=== PATIENT | female | born 1985 | race American Indian/Alaskan Native ===

== ENCOUNTER 2016-07-12 12:38 | Emergency (ER) | payer MEDICAID ==
[2016-07-12 12:39] VITALS: BMI 38.5
[2016-07-12 12:53] VITALS: BP 113/61; PULSE 81; RESP 18; TEMP 98.1; O2SAT 100
--- NOTE | 2016-07-12 13:27 | ED PDOC ---
HPI: General Adult Time Seen by Provider: 07/12/16 12:54 Chief Complaint (Nursing): Dental Pain Chief Complaint (Provider): Dental Pain History Per: Patient History/Exam Limitations: no limitations Onset/Duration Of Symptoms: Days (x2 days) Have you had recent travel within the past 21 days to any of the following countries: [place], [place], [place] or [place]?: No Current Symptoms Are (Timing): Still Present Severity: Moderate Location: right lower tooth Quality: aching pain Recent Trauma: none Additional Complaint(s): Kat Pierre is a 31 year old female, with no pertinent past medical history , who presents to the emergency department for the evaluation of dental pain, that the patient has been experiencing for the past 2 days. Pain is centralized to her right lower tooth and is described as an aching pain that does not radiate elsewhere. Denies a fever or trauma. Of note, patient reports taking Tylenol; however, it provided no relief, prompting her visit to the emergency department. Patient also states that she has an upcoming appointment with her dentist on 07/25/2016. Further reports that she is not . PMD: none specified Past Medical History Reviewed: Historical Data, Nursing Documentation, Vital Signs Vital Signs: Last Vital Signs Temp 98.1 F 07/12/16 12:50 Pulse 81 07/12/16 12:50 Resp 18 07/12/16 12:50 BP 113/61 07/12/16 12:50 Pulse Ox 100 07/12/16 18:08 - Medical History PMH: No Chronic Diseases - Surgical History Surgical History: (x2) Other surgeries: Dilation and Curettage - Family History Family History: States: Unknown Family Hx - Social History Current smoker - smoking cessation education provided: Yes (<10 cigarettes daily ) Alcohol: None Drugs: Denies - Home Medications Home Medications: Ambulatory Orders Medication Instructions Recorded Vit#96/Ferrous Fum/FA 1 tab PO DAILY #100 tab 07/02/15 [] Cephalexin [Keflex] 500 mg PO Q8 #15 capsule 01/23/16 oxyCODONE/Acetaminophen [Percocet 2 ea PO Q4 PRN #20 tab 01/23/16 5/325 mg Tab] Penicillin VK [Pen-Vee K] 500 mg PO Q6 #40 tab 03/19/16 traMADol [Ultram] 50 mg PO Q8 #10 tab 03/19/16 Naproxen [Naprosyn] 500 mg PO BID PRN #30 tab 07/12/16 Penicillin VK [Pen-Vee K] 500 mg PO Q6 #40 tab 07/12/16 Tramadol HCl [Ultram] 50 mg PO BID PRN #14 tablet 07/12/16 - Allergies Allergies/Adverse Reactions: Allergies Allergy/AdvReac Type Severity Reaction Status Date / Time No Known Allergies Allergy Verified 02/15/15 09:45 Review of Systems ROS Statement: Except As Marked, All Systems Reviewed And Found Negative Constitutional: Negative for: Fever Musculoskeletal: Positive for: Other (dental pain, right lower tooth) Physical Exam - Reviewed Nursing Documentation Reviewed: Yes Vital Signs Reviewed: Yes - Physical Exam Appears: Positive for: Non-toxic, No Acute Distress ENT: Positive for: Normal ENT Inspection, Other (minimal gingival swelling w/ out fluctuance; tenderness to right mandibular molar tooth; poor dentition) Neurologic/Psych: Positive for: Alert, Oriented - ECG O2 Sat by Pulse Oximetry: 100 (RA) Pulse Ox Interpretation: Normal Medical Decision Making Medical Decision Makin:54 Initial Impression: Tooth ache Initial Plan: * Toradol 15 mg IM * Reevaluation Scribe Attestation: Documented by Houston Kohli, acting as a scribe for ROOPA Kohler. Provider Scribe Attestation: All medical record entries made by the Scribe were at my direction and personally dictated by me. I have reviewed the chart and agree that the record accurately reflects my personal performance of the history, physical exam, medical decision making, and the department course for this patient. I have also personally directed, reviewed, and agree with the discharge instructions and disposition. Disposition - Clinical Impression Clinical Impression: Toothache - Patient ED Disposition Is Patient to be Admitted: No - Disposition Disposition: Routine/Home Disposition Time: :20 Condition: STABLE Additional Instructions: Follow up with your dentist as previously scheduled. Prescriptions: Naproxen [Naprosyn] 500 mg PO BID PRN #30 tab PRN Reason: Pain Penicillin VK [Pen-Vee K] 500 mg PO Q6 #40 tab Tramadol HCl [Ultram] 50 mg PO BID PRN #14 tablet PRN Reason: Other Instructions: Toothache (ED)
== END 2016-07-12 14:44 | disposition home or self-care (01) ==
LOC: H.ER 12:38
DX: K08.89 Other specified disorders of teeth and supporting structures (principal)

== ENCOUNTER 2016-11-06 11:35 | Emergency (ER) | payer MEDICAID ==
[2016-11-06 11:46] VITALS: TEMP 97; O2SAT 99; BMI 38.3
[2016-11-06 12:16] VITALS: RESP 16
--- NOTE | 2016-11-06 12:37 | ED PDOC ---
Upper Extremity Pain/Injury Time Seen by Provider: 11/06/16 12:26 Chief Complaint (Nursing): Finger,Hand,&Wrist Chief Complaint (Provider): Left Finger Injury History Per: Patient History/Exam Limitations: no limitations Onset/Duration Of Symptoms: Days (x1) Current Symptoms Are (Timing): Still Present Additional Complaint(s): Kat Pierre is a 31 year old right-hand dominant female that presents to the ED with a chief complaint of a left index finger injury that she sustained yesterday after a fall. Patient denies any head injury or LOC as a result of fall yesterday and she denies any other injuries as a result of fall. Patient states that she took Tylenol but this has not helped. She states swelling is worse today. Patient unable to bend affected digit, she denies any associated numbness or tingling to affected area. Past Medical History Reviewed: Historical Data, Nursing Documentation, Vital Signs Vital Signs: Last Vital Signs Temp 97 F L 11/06/16 12:13 Pulse 70 11/06/16 12:13 Resp 16 11/06/16 12:13 BP 127/103 H 11/06/16 12:13 Pulse Ox 99 11/06/16 12:13 - Medical History PMH: No Chronic Diseases - Surgical History Surgical History: (x2) - Family History Family History: States: No Known Family Hx - Living Arrangements Living Arrangements: With Family - Social History Current smoker - smoking cessation education provided: Yes Alcohol: None Drugs: Denies - Home Medications Home Medications: Ambulatory Orders Medication Instructions Recorded Vit#96/Ferrous Fum/FA 1 tab PO DAILY #100 tab 07/02/15 [] Cephalexin [Keflex] 500 mg PO Q8 #15 capsule 01/23/16 oxyCODONE/Acetaminophen [Percocet 2 ea PO Q4 PRN #20 tab 01/23/16 5/325 mg Tab] Penicillin VK [Pen-Vee K] 500 mg PO Q6 #40 tab 03/19/16 traMADol [Ultram] 50 mg PO Q8 #10 tab 03/19/16 Naproxen [Naprosyn] 500 mg PO BID PRN #30 tab 07/12/16 Penicillin VK [Pen-Vee K] 500 mg PO Q6 #40 tab 07/12/16 Tramadol HCl [Ultram] 50 mg PO BID PRN #14 tablet 07/12/16 Ibuprofen [Motrin Tab] 800 mg PO Q8 PRN #20 tab 11/06/16 - Allergies Allergies/Adverse Reactions: Allergies Allergy/AdvReac Type Severity Reaction Status Date / Time No Known Allergies Allergy Verified 02/15/15 09:45 Review of Systems ROS Statement: Except As Marked, All Systems Reviewed And Found Negative Musculoskeletal: Positive for: Hand Pain (left index finger injury) Physical Exam - Reviewed Nursing Documentation Reviewed: Yes Vital Signs Reviewed: Yes - Physical Exam Appears: Positive for: Non-toxic, No Acute Distress Skin: Positive for: Normal Color, Warm. Negative for: Rash Pulses-Radial (L): 2+ Pulses-Radial (R): 2+ Extremity: Positive for: Tenderness (TTP left index finger), Swelling (swelling of left index finger). Negative for: Normal ROM (decreased ROM left index finger) Neurologic/Psych: Positive for: Alert, Oriented. Negative for: Motor/Sensory Deficits (full distal sensation in left index finger) - Laboratory Results Urine POC: Negative - ECG O2 Sat by Pulse Oximetry: 99 (RA) Pulse Ox Interpretation: Normal - Other Rad Left hand x-ray X-Ray: Interpreted by Me, Viewed By Me X-Ray Interpretation: see below Medical Decision Making Medical Decision Making: Impression: Left Index Finger Injury Plan: * X-Ray Left Hand * Ibuprofen 600 mg PO * Urine * Reevaluation X-ray: nondisplaced fracture middle phanlanx of index finger best seen on lateral view Splint applied to affected digit. Patient was referred to hand transcription coordinator and clinic. [employer] contact information also provided. Rx motrin. Scribe Attestation: Documented by Keerthi Mendiola, acting as a scribe for Harleen Lee PA-C. Provider Scribe Attestation: All medical record entries made by the Scribe were at my direction and personally dictated by me. I have reviewed the chart and agree that the record accurately reflects my personal performance of the history, physical exam, medical decision making, and the department course for this patient. I have also personally directed, reviewed, and agree with the discharge instructions and disposition. Procedures - Splinting Location: Left index finger Pre-Made Type: metal (metallic volar splint applied, secured with tape) Pre-Proc Neuro Vasc Exam: normal Post-Proc Neuro Vasc Exam: normal Disposition - Clinical Impression Clinical Impression: Finger fracture, left - Patient ED Disposition Is Patient to be Admitted: No Counseled Patient/Family Regarding: Studies Performed, Diagnosis, Need For Followup, Rx Given - Disposition Referrals: [facility] [Outside] Aleksandr Lux MD [Medical Doctor] - Disposition: Routine/Home Disposition Time: 13:04 Condition: STABLE Additional Instructions: Ice, rest and elevate affected area. Keep splint on at all times. Take rx meds as directed as needed for pain. Follow up with clinic or with hand specialist in 2-3 days. Prescriptions: Ibuprofen [Motrin Tab] 800 mg PO Q8 PRN #20 tab PRN Reason: Pain, Moderate (4-7) Instructions: Finger Fracture (ED) Forms: [employer] ([place])
[2016-11-06 14:19] VITALS: BP 164/90; PULSE 80
--- NOTE | 2016-11-06 14:25 | RAD ---
PROCEDURE: Left Hand Radiographs. HISTORY: trauma, attn index finger COMPARISON: None. FINDINGS: BONES: 2nd middle phalanx fracture. JOINTS: Normal. No osteoarthritic changes. SOFT TISSUES: Normal. OTHER FINDINGS: None. IMPRESSION: 2nd middle phalanx fracture.
== END 2016-11-06 14:38 | disposition home or self-care (01) ==
LOC: H.ER 11:35
DX: S62.601A Fracture of unspecified phalanx of left index finger, initial encounter for closed fracture (principal); W19.XXXA Unspecified fall, initial encounter

== ENCOUNTER 2017-02-18 08:12 | Emergency (ER) | payer MEDICAID ==
[2017-02-18 08:12] VITALS: BMI 38.3
[2017-02-18 08:21] VITALS: TEMP 97
[2017-02-18] MEDS ORDERED: Sodium Chloride 0.9% 1,000 ML IV STA (08:34)
--- NOTE | 2017-02-18 08:39 | ED PDOC ---
HPI:Nausea, Vomiting, Diarrhea Time Seen by Provider: 02/18/17 08:23 Chief Complaint (Nursing): GI Problem Chief Complaint (Provider): Nausea History Per: Patient History/Exam Limitations: no limitations Onset/Duration Of Symptoms: Days (4) Current Symptoms Are (Timing): Still Present Additional Complaint(s): Pt. with 4 days of nausea, vomit nonbloody, weakness all over. Also facial pain and back of head pain. Same as her migraines. Not worst in her life. States she has had bad headaches in the past and this is not that bad. No neck pain. No diarrhea. Has no abd pain, chest pain, dyspnea. Feels light-headed, weakness all over. No fever. No new food or drinks. No head injury. No back pain. No dysuria. No numbness, tingles. Has body aches. Did not take any medicines for it. Past Medical History Reviewed: Nursing Documentation, Vital Signs Vital Signs: Last Vital Signs Temp 97.0 F L 02/18/17 08:20 Pulse 63 02/18/17 08:20 Resp 20 02/18/17 08:20 BP 106/62 02/18/17 08:20 Pulse Ox 100 02/18/17 08:20 - Medical History Other PMH: migraine - Surgical History Surgical History: (x2) - Family History Family History: States: Unknown Family Hx - Living Arrangements Living Arrangements: With Family - Social History Current smoker - smoking cessation education provided: No Alcohol: None Drugs: Denies - Home Medications Home Medications: Ambulatory Orders Medication Instructions Recorded Vit#96/Ferrous Fum/FA 1 tab PO DAILY #100 tab 07/02/15 [] Cephalexin [Keflex] 500 mg PO Q8 #15 capsule 01/23/16 oxyCODONE/Acetaminophen [Percocet 2 ea PO Q4 PRN #20 tab 01/23/16 5/325 mg Tab] Penicillin VK [Pen-Vee K] 500 mg PO Q6 #40 tab 03/19/16 traMADol [Ultram] 50 mg PO Q8 #10 tab 03/19/16 Naproxen [Naprosyn] 500 mg PO BID PRN #30 tab 07/12/16 Penicillin VK [Pen-Vee K] 500 mg PO Q6 #40 tab 07/12/16 Tramadol HCl [Ultram] 50 mg PO BID PRN #14 tablet 07/12/16 Ibuprofen [Motrin Tab] 800 mg PO Q8 PRN #20 tab 11/06/16 Ibuprofen [Motrin] 600 mg PO TID 7 Days tab 02/18/17 Ondansetron [Zofran] 4 mg PO Q8H PRN #6 tab 02/18/17 - Allergies Allergies/Adverse Reactions: Allergies Allergy/AdvReac Type Severity Reaction Status Date / Time No Known Allergies Allergy Verified 02/18/17 08:25 Review of Systems ROS Statement: Except As Marked, All Systems Reviewed And Found Negative Constitutional: Positive for: Weakness ENT: Positive for: Other (face pain) Gastrointestinal: Positive for: Nausea, Vomiting. Negative for: Abdominal Pain Musculoskeletal: Positive for: Other (body aches). Negative for: Neck Pain Neurological: Positive for: Weakness, Headache, Dizziness. Negative for: Numbness, Incoordination, Change in Speech, Confusion, Altered Mental Status Physical Exam - Reviewed Nursing Documentation Reviewed: Yes Vital Signs Reviewed: Yes - Physical Exam Appears: Positive for: Non-toxic, No Acute Distress Head Exam: Positive for: ATRAUMATIC, NORMAL INSPECTION, NORMOCEPHALIC Skin: Positive for: Normal Color, Warm, DRY Eye Exam: Positive for: EOMI, Normal appearance, PERRL ENT: Positive for: Normal ENT Inspection. Negative for: Nasal Congestion, Pharyngeal Erythema Neck: Positive for: Normal, Painless ROM, Supple Cardiovascular/Chest: Positive for: Regular Rate, Rhythm. Negative for: Edema Respiratory: Positive for: CNT, Normal Breath Sounds Gastrointestinal/Abdominal: Positive for: Normal Exam, Bowel Sounds, Soft Pelvic Exam: Negative for: External Exam Normal Back: Positive for: Normal Inspection. Negative for: L CVA Tenderness, R CVA Tenderness Extremity: Positive for: Normal ROM. Negative for: Tenderness, Pedal Edema Neurologic/Psych: Positive for: Alert, sql database programmer II-XII, Oriented. Negative for: Motor/Sensory Deficits, Aphasia, Facial Droop - Laboratory Results Result Diagrams: 02/18/17 09:27 02/18/17 09:27 Interpretation Of Abn Labs: no acute Urine POC: Negative Urine dip results: Negative for: Leukocyte Esterase, Nitrate - ECG O2 Sat by Pulse Oximetry: 100 Pulse Ox Interpretation: Normal - Progress ED Course And Treament: 1140: Stable. AAOx3. Pain free. Tolerated PO. Disposition - Clinical Impression Clinical Impression: Weakness, Headache - Patient ED Disposition Is Patient to be Admitted: No Counseled Patient/Family Regarding: Studies Performed, Diagnosis, Need For Followup, Rx Given - Disposition Referrals: [facility] [Outside] - 02/19/17 Disposition: Routine/Home Disposition Time: 11:00 Condition: STABLE Additional Instructions: Return if not better in 3 days. Prescriptions: Ibuprofen [Motrin] 600 mg PO TID 7 Days tab Ondansetron [Zofran] 4 mg PO Q8H PRN #6 tab PRN Reason: Nausea/Vomiting Instructions: Weakness (ED), Acute Headache (ED) Forms: [employer] (Kiswahili)
[2017-02-18 09:32] LABS: BASO # 0.1 K/uL (0.0-0.2); EOS # 0.2 K/uL (0.0-0.7); EOS % 2.6 % (0.0-4.0); HEMATOCRIT 31.5 % (34.0-47.0); LYMPH # 1.9 K/uL (1.0-4.3); LYMPH % 27.2 % (20.0-40.0); MEAN CELL VOLUME 67.4 fl (81.0-99.0); MEAN CORPUSCULAR HEMOGLOBIN 20.3 pg (27.0-31.0); MEAN CORPUSCULAR HGB CONC 30.1 g/dL (33.0-37.0); MEAN PLATELET VOLUME 9.2 fl (7.2-11.7); MONO # 0.6 K/uL (0.0-0.8); MONO % 8.7 % (0.0-10.0); NEUT # 4.2 K/uL (1.8-7.0); NEUT % 60.5 % (50.0-75.0); NRBC % 0.1 % (0.0-0.0); RED CELL DISTRIBUTION WIDTH 19.9 % (11.5-14.5); WHITE BLOOD COUNT 6.9 K/uL (4.8-10.8)
[2017-02-18 09:48] LABS: ALKALINE PHOSPHATASE 61 U/L (38-126); ALT/SGPT 29 U/L (9-52); AST/SGOT 27 U/L (14-36); BILIRUBIN,TOTAL 0.2 mg/dl (0.2-1.3); BLOOD UREA NITROGEN 10 mg/dl (7-17); CALCIUM 8.2 mg/dL (8.4-10.2); CARBON DIOXIDE 22 mmol/L (22-30); CHLORIDE 112 mmol/L (98-107); GFR AFRICAN-AMERICAN > 60; GLUCOSE,RANDOM 103 mg/dL (65-105); LIPASE 40 U/L (23-300); POTASSIUM 3.7 MMOL/L (3.6-5.0); SODIUM 143 mmol/l (132-148); TOTAL PROTEIN 7.5 G/DL (6.3-8.2)
[2017-02-18 13:37] VITALS: BP 142/78; PULSE 88; RESP 18; O2SAT 98
== END 2017-02-18 11:30 | disposition home or self-care (01) ==
LOC: H.ER 08:12
DX: M62.81 Muscle weakness (generalized) (principal); R51 Headache
CPT/HCPCS: 80053; 81025; 83690; 85025; 96374; 99283; J2765; J7040

== ENCOUNTER 2017-04-08 00:41 | Emergency (ER) | payer MEDICAID ==
[2017-04-08 00:42] VITALS: BMI 38.3
[2017-04-08 01:26] VITALS: BP 108/54; PULSE 67; RESP 16; TEMP 98.9; O2SAT 100
--- NOTE | 2017-04-08 02:07 | ED PDOC ---
HPI: Dental Pain/Injury Time Seen by Provider: 04/08/17 01:29 Chief Complaint (Nursing): Dental Pain Chief Complaint (Provider): toothache History Per: Patient History/Exam Limitations: no limitations Onset/Duration Of Symptoms: Days (1) Current Symptoms Are (Timing): Still Present Dental: 1 - pain Additional History Per: Patient Additional Complaint(s): 32 y/o female presents with left upper toothache x 1 day. Associated left facial swelling, bleeding from tooth. Denies fever, nausea/vomiting, difficulty speaking/swallowing, throat pain. No medication taken for relief thus far. Past Medical History Reviewed: Historical Data, Nursing Documentation, Vital Signs Vital Signs: Last Vital Signs Temp 98.9 F 04/08/17 01:23 Pulse 67 04/08/17 01:23 Resp 16 04/08/17 01:23 BP 108/54 L 04/08/17 01:23 Pulse Ox 100 04/08/17 01:23 - Medical History PMH: No Chronic Diseases - Surgical History Surgical History: (x2) - Family History Family History: States: Unknown Family Hx - Home Medications Home Medications: Ambulatory Orders Medication Instructions Recorded Vit#96/Ferrous Fum/FA 1 tab PO DAILY #100 tab 07/02/15 [] Cephalexin [Keflex] 500 mg PO Q8 #15 capsule 01/23/16 oxyCODONE/Acetaminophen [Percocet 2 ea PO Q4 PRN #20 tab 01/23/16 5/325 mg Tab] Penicillin VK [Pen-Vee K] 500 mg PO Q6 #40 tab 03/19/16 traMADol [Ultram] 50 mg PO Q8 #10 tab 03/19/16 Naproxen [Naprosyn] 500 mg PO BID PRN #30 tab 07/12/16 Penicillin VK [Pen-Vee K] 500 mg PO Q6 #40 tab 07/12/16 Tramadol HCl [Ultram] 50 mg PO BID PRN #14 tablet 07/12/16 Ibuprofen [Motrin Tab] 800 mg PO Q8 PRN #20 tab 11/06/16 Ibuprofen [Motrin] 600 mg PO TID 7 Days tab 02/18/17 Ondansetron [Zofran] 4 mg PO Q8H PRN #6 tab 02/18/17 Amoxicillin 500 mg PO TID #20 tablet 04/08/17 Naproxen [Naprosyn] 500 mg PO Q12 PRN #20 tablet 04/08/17 traMADol [Ultram] 50 mg PO Q8 PRN #10 tab 04/08/17 - Allergies Allergies/Adverse Reactions: Allergies Allergy/AdvReac Type Severity Reaction Status Date / Time No Known Allergies Allergy Verified 04/08/17 01:23 Review of Systems ROS Statement: Except As Marked, All Systems Reviewed And Found Negative ENT: Positive for: Mouth Pain (left upper toothache) Physical Exam - Reviewed Nursing Documentation Reviewed: Yes Vital Signs Reviewed: Yes - Physical Exam Appears: Positive for: Well, Non-toxic, Uncomfortable Head Exam: Positive for: ATRAUMATIC, NORMAL INSPECTION, NORMOCEPHALIC ENT: Positive for: TM Is/Are (clear bilaterally), Other (partial visibility of left upper wisdom tooth with tender to touch, surrounding gum tenderness, erythema. No abscess formation, facial edema/erythema noted). Negative for: Nasal Congestion, Pharyngeal Erythema, Tonsillar Exudate, Tonsillar Swelling Extremity: Positive for: Normal ROM Neurologic/Psych: Positive for: Alert, Oriented - ECG O2 Sat by Pulse Oximetry: 100 - Progress ED Course And Treament: Toradol IM, tramadol PO, Amoxicillin PO Patient educated on findings, discharged with rx Amoxicillin, Tramadol, Naproxen. Advised Dental follow up GUCCI. Return precautions given. Disposition - Clinical Impression Clinical Impression: Toothache - Patient ED Disposition Is Patient to be Admitted: No Counseled Patient/Family Regarding: Diagnosis, Need For Followup, Rx Given - Disposition Disposition: Routine/Home Disposition Time: 03:19 Condition: IMPROVED Prescriptions: Amoxicillin 500 mg PO TID #20 tablet Naproxen [Naprosyn] 500 mg PO Q12 PRN #20 tablet PRN Reason: Pain, Moderate (4-7) traMADol [Ultram] 50 mg PO Q8 PRN #10 tab PRN Reason: Pain, Severe (8-10) Instructions: Toothache (ED) Forms: [employer] (Dominican)
== END 2017-04-08 03:45 | disposition home or self-care (01) ==
LOC: H.ER 00:41
DX: K08.89 Other specified disorders of teeth and supporting structures (principal)
CPT/HCPCS: 81025; 96372; 99282; J1885

== ENCOUNTER 2017-06-13 09:03 | Emergency (ER) | payer MEDICAID ==
[2017-06-13 09:03] VITALS: BMI 38.3
[2017-06-13 09:09] VITALS: BP 110/61; PULSE 66; TEMP 97; O2SAT 100
[2017-06-13 09:38] VITALS: RESP 18
--- NOTE | 2017-06-13 09:45 | ED PDOC ---
HPI: Dental Pain/Injury Time Seen by Provider: 06/13/17 09:18 Chief Complaint (Nursing): Dental Pain History Per: Patient Onset/Duration Of Symptoms: Unknown Current Symptoms Are (Timing): Still Present Severity: Moderate Pain Scale Rating Of: 3 Quality: Aching Additional Complaint(s): Pain and swelling gums bilat lower. Unknown duration No fever. Past Medical History Vital Signs: Last Vital Signs Temp 97 F L 06/13/17 09:35 Pulse 66 06/13/17 09:35 Resp 18 06/13/17 09:35 BP 110/61 06/13/17 09:35 Pulse Ox 100 06/13/17 09:35 - Medical History PMH: No Chronic Diseases - Surgical History Surgical History: (x2) - Family History Family History: States: Unknown Family Hx - Home Medications Home Medications: Ambulatory Orders Medication Instructions Recorded Vit#96/Ferrous Fum/FA 1 tab PO DAILY #100 tab 07/02/15 [] Cephalexin [Keflex] 500 mg PO Q8 #15 capsule 01/23/16 oxyCODONE/Acetaminophen [Percocet 2 ea PO Q4 PRN #20 tab 01/23/16 5/325 mg Tab] Penicillin VK [Pen-Vee K] 500 mg PO Q6 #40 tab 03/19/16 traMADol [Ultram] 50 mg PO Q8 #10 tab 03/19/16 Naproxen [Naprosyn] 500 mg PO BID PRN #30 tab 07/12/16 Penicillin VK [Pen-Vee K] 500 mg PO Q6 #40 tab 07/12/16 Tramadol HCl [Ultram] 50 mg PO BID PRN #14 tablet 07/12/16 Ibuprofen [Motrin Tab] 800 mg PO Q8 PRN #20 tab 11/06/16 Ibuprofen [Motrin] 600 mg PO TID 7 Days tab 02/18/17 Ondansetron [Zofran] 4 mg PO Q8H PRN #6 tab 02/18/17 Amoxicillin 500 mg PO TID #20 tablet 04/08/17 Naproxen [Naprosyn] 500 mg PO Q12 PRN #20 tablet 04/08/17 traMADol [Ultram] 50 mg PO Q8 PRN #10 tab 04/08/17 Naproxen [Naprosyn] 500 mg PO Q12H #20 tab 06/13/17 Penicillin VK [Penicillin VK Tab] 250 mg PO Q6H #40 tab 06/13/17 - Allergies Allergies/Adverse Reactions: Allergies Allergy/AdvReac Type Severity Reaction Status Date / Time No Known Allergies Allergy Verified 04/08/17 01:23 Review of Systems Constitutional: Negative for: Fever ENT: Positive for: Mouth Pain, Mouth Swelling Physical Exam - Physical Exam Appears: Positive for: Non-toxic, No Acute Distress Skin: Positive for: Normal Color, Warm, DRY ENT: Positive for: Other (Gingival swelling and inflammation upper and lower fingiva bilat. Dental dcecay and carries upper and lower bilat. No abscess.) - ECG O2 Sat by Pulse Oximetry: 100 Disposition - Clinical Impression Clinical Impression: Dental caries, Gingivitis - Patient ED Disposition Is Patient to be Admitted: No - Disposition Referrals: Jacoby Ye DDS [Staff Provider] - Disposition: Routine/Home Disposition Time: 09:45 Condition: FAIR Prescriptions: Naproxen [Naprosyn] 500 mg PO Q12H #20 tab Penicillin VK [Penicillin VK Tab] 250 mg PO Q6H #40 tab Instructions: Gingivitis (DC), Tooth Decay, Adult
== END 2017-06-13 09:55 | disposition home or self-care (01) ==
LOC: H.ER 09:03
DX: K02.9 Dental caries, unspecified (principal); K05.10 Chronic gingivitis, plaque induced

== ENCOUNTER 2017-07-13 11:54 | Emergency (ER) | payer MEDICAID ==
[2017-07-13 11:59] VITALS: BP 113/75; PULSE 68; RESP 20; TEMP 98.7; BMI 39.4
[2017-07-13 12:15] VITALS: O2SAT 98
--- NOTE | 2017-07-13 12:30 | ED PDOC ---
HPI: Dental Pain/Injury Time Seen by Provider: 07/13/17 12:07 Chief Complaint (Nursing): Dental Pain Chief Complaint (Provider): Dental Pain History Per: Patient History/Exam Limitations: no limitations Onset/Duration Of Symptoms: Other (x 2 weeks) Current Symptoms Are (Timing): Still Present Additional Complaint(s): Kat is a 32 y/o female who presents to the ED complaining of dental pain that has been ongoing for a few weeks. Patient has a dentist appointment July 22 but states she came today to ED as pain is getting worse. She has taken Tylenol for the pain with mild relief. Patient is tolerated liquids but is afraid to eat any solids and she is concerned that it may cause dental pain. No fever or chills. PMD: None Past Medical History Reviewed: Historical Data, Nursing Documentation, Vital Signs Vital Signs: Last Vital Signs Temp 98.7 F 07/13/17 11:59 Pulse 68 07/13/17 11:59 Resp 20 07/13/17 11:59 BP 113/75 07/13/17 11:59 Pulse Ox 98 07/13/17 12:13 - Medical History PMH: No Chronic Diseases - Surgical History Surgical History: (x2) - Family History Family History: States: No Known Family Hx - Living Arrangements Living Arrangements: With Family - Social History Current smoker - smoking cessation education provided: Yes Alcohol: None Drugs: Denies - Home Medications Home Medications: Ambulatory Orders Medication Instructions Recorded Vit#96/Ferrous Fum/FA 1 tab PO DAILY #100 tab 07/02/15 [] Cephalexin [Keflex] 500 mg PO Q8 #15 capsule 01/23/16 oxyCODONE/Acetaminophen [Percocet 2 ea PO Q4 PRN #20 tab 01/23/16 5/325 mg Tab] Penicillin VK [Pen-Vee K] 500 mg PO Q6 #40 tab 03/19/16 traMADol [Ultram] 50 mg PO Q8 #10 tab 03/19/16 Naproxen [Naprosyn] 500 mg PO BID PRN #30 tab 07/12/16 Penicillin VK [Pen-Vee K] 500 mg PO Q6 #40 tab 07/12/16 Tramadol HCl [Ultram] 50 mg PO BID PRN #14 tablet 07/12/16 Ibuprofen [Motrin Tab] 800 mg PO Q8 PRN #20 tab 11/06/16 Ibuprofen [Motrin] 600 mg PO TID 7 Days tab 02/18/17 Ondansetron [Zofran] 4 mg PO Q8H PRN #6 tab 02/18/17 Amoxicillin 500 mg PO TID #20 tablet 04/08/17 Naproxen [Naprosyn] 500 mg PO Q12 PRN #20 tablet 04/08/17 traMADol [Ultram] 50 mg PO Q8 PRN #10 tab 04/08/17 Naproxen [Naprosyn] 500 mg PO Q12H #20 tab 06/13/17 Penicillin VK [Penicillin VK Tab] 250 mg PO Q6H #40 tab 06/13/17 Ibuprofen [Motrin Tab] 800 mg PO Q8 PRN #20 tab 07/13/17 traMADol [Ultram] 50 mg PO QID #10 tab 07/13/17 - Allergies Allergies/Adverse Reactions: Allergies Allergy/AdvReac Type Severity Reaction Status Date / Time No Known Allergies Allergy Verified 07/13/17 12:13 Review of Systems ROS Statement: Except As Marked, All Systems Reviewed And Found Negative Constitutional: Negative for: Fever, Chills ENT: Positive for: Mouth Pain (dental) Gastrointestinal: Negative for: Nausea, Vomiting Neurological: Negative for: Headache, Dizziness Physical Exam - Reviewed Nursing Documentation Reviewed: Yes Vital Signs Reviewed: Yes - Physical Exam Appears: Positive for: Well, Non-toxic, No Acute Distress Skin: Positive for: Normal Color. Negative for: Rash ENT: Positive for: Other (multiple decayed teeth, dental caries and fractured teeth, no abscess, airway patent, uvula midline) Neurologic/Psych: Positive for: Alert, Oriented - Laboratory Results Urine POC: Negative (test declined by patient, she states she is certain she is not ) - ECG O2 Sat by Pulse Oximetry: 98 (RA) Pulse Ox Interpretation: Normal Medical Decision Making Medical Decision Making: Time: 12:25 Initial Impression: 32 y/o female with dental pain Initial Plan: --Motrin PO dose in ED Patient given rx motrin and tramadol. Advised follow up GUCCI with dentist. Smoking cessation instructions given. Scribe Attestation: Documented by Itz Johnson, acting as a scribe for Harleen Lee PA-C. Provider Scribe Attestation: All medical record entries made by the Scribe were at my direction and personally dictated by me. I have reviewed the chart and agree that the record accurately reflects my personal performance of the history, physical exam, medical decision making, and the department course for this patient. I have also personally directed, reviewed, and agree with the discharge instructions and disposition. Disposition - Clinical Impression Clinical Impression: Dental caries, Toothache - Patient ED Disposition Is Patient to be Admitted: No Counseled Patient/Family Regarding: Diagnosis, Need For Followup, Rx Given, Smoking Cessation - Disposition Referrals: [facility] [Outside] Disposition: Routine/Home Disposition Time: 12:40 Condition: STABLE Additional Instructions: Take rx meds as directed. Soft foods and liquids only. Follow up GUCCI with dentist. Prescriptions: Ibuprofen [Motrin Tab] 800 mg PO Q8 PRN #20 tab PRN Reason: Pain, Moderate (4-7) traMADol [Ultram] 50 mg PO QID #10 tab Instructions: Tooth Decay, Adult (DC), Dental Pain (DC), Quitting Smoking Forms: [employer] (Sammarinese)
== END 2017-07-13 13:09 | disposition home or self-care (01) ==
LOC: H.ER 11:54
DX: K02.9 Dental caries, unspecified (principal)

== ENCOUNTER 2017-07-30 09:03 | Emergency (ER) | payer MEDICAID ==
[2017-07-30 09:03] VITALS: BMI 39.4
[2017-07-30 09:29] VITALS: BP 130/76; RESP 18; TEMP 97.1; O2SAT 100
--- NOTE | 2017-07-30 09:43 | ED PDOC ---
HPI: Dental Pain/Injury Time Seen by Provider: 07/30/17 09:27 Chief Complaint (Nursing): Dental Pain Chief Complaint (Provider): Dental pain History Per: Patient History/Exam Limitations: no limitations Onset/Duration Of Symptoms: Days (yesterday) Current Symptoms Are (Timing): Still Present Additional Complaint(s): Pt. with dental pain. Has appt with dentist to remove 9 teeth in 1-2 weeks. Pt. here as pain still present on left upper teeth. Pt. denies any chest pain, dyspnea, weakness, sore throat, headaches. No dizziness. No fever. No nausea , vomit. Took aspirin for pain. Dentist would not seem her and said to go to the ER for pain. Past Medical History Reviewed: Nursing Documentation, Vital Signs Vital Signs: Last Vital Signs Temp 97.1 F L 07/30/17 09:26 Pulse 106 H 07/30/17 09:26 Resp 18 07/30/17 09:26 BP 130/76 07/30/17 09:26 Pulse Ox 100 07/30/17 09:26 - Medical History PMH: No Chronic Diseases - Surgical History Surgical History: (x2) - Family History Family History: States: Unknown Family Hx - Home Medications Home Medications: Ambulatory Orders Medication Instructions Recorded Vit#96/Ferrous Fum/FA 1 tab PO DAILY #100 tab 07/02/15 [] Cephalexin [Keflex] 500 mg PO Q8 #15 capsule 01/23/16 oxyCODONE/Acetaminophen [Percocet 2 ea PO Q4 PRN #20 tab 01/23/16 5/325 mg Tab] Penicillin VK [Pen-Vee K] 500 mg PO Q6 #40 tab 03/19/16 traMADol [Ultram] 50 mg PO Q8 #10 tab 03/19/16 Naproxen [Naprosyn] 500 mg PO BID PRN #30 tab 07/12/16 Penicillin VK [Pen-Vee K] 500 mg PO Q6 #40 tab 07/12/16 Tramadol HCl [Ultram] 50 mg PO BID PRN #14 tablet 07/12/16 Ibuprofen [Motrin Tab] 800 mg PO Q8 PRN #20 tab 11/06/16 Ibuprofen [Motrin] 600 mg PO TID 7 Days tab 02/18/17 Ondansetron [Zofran] 4 mg PO Q8H PRN #6 tab 02/18/17 Amoxicillin 500 mg PO TID #20 tablet 04/08/17 Naproxen [Naprosyn] 500 mg PO Q12 PRN #20 tablet 04/08/17 traMADol [Ultram] 50 mg PO Q8 PRN #10 tab 04/08/17 Naproxen [Naprosyn] 500 mg PO Q12H #20 tab 06/13/17 Penicillin VK [Penicillin VK Tab] 250 mg PO Q6H #40 tab 06/13/17 Ibuprofen [Motrin Tab] 800 mg PO Q8 PRN #20 tab 07/13/17 traMADol [Ultram] 50 mg PO QID #10 tab 07/13/17 Amoxicillin/Clavulanate [Augmentin 1 tab PO BID 7 Days tab 07/30/17 875 MG-125 MG] Ibuprofen [Motrin] 600 mg PO TID 7 Days tab 07/30/17 - Allergies Allergies/Adverse Reactions: Allergies Allergy/AdvReac Type Severity Reaction Status Date / Time No Known Allergies Allergy Verified 07/30/17 09:26 Review of Systems Constitutional: Negative for: Fever, Weakness Eyes: Negative for: Vision Change ENT: Negative for: Ear Discharge, Nose Pain, Nose Discharge, Nose Congestion, Mouth Pain, Mouth Swelling, Throat Pain Cardiovascular: Negative for: Chest Pain Respiratory: Negative for: Cough, Shortness of Breath Gastrointestinal: Negative for: Nausea, Vomiting Musculoskeletal: Negative for: Neck Pain Skin: Negative for: Rash Neurological: Negative for: Weakness Physical Exam - Reviewed Nursing Documentation Reviewed: Yes Vital Signs Reviewed: Yes - Physical Exam Appears: Positive for: Non-toxic, No Acute Distress Head Exam: Positive for: ATRAUMATIC, NORMAL INSPECTION, NORMOCEPHALIC Eye Exam: Positive for: EOMI, PERRL ENT: Positive for: Other (very poor dental hygiene; missing several teeth and some with fillings; L upper tooth last molar tender, tender mild; no abscess or gum swelling) Neck: Positive for: Normal, Painless ROM Cardiovascular/Chest: Positive for: Regular Rate, Rhythm Respiratory: Positive for: CNT, Normal Breath Sounds Gastrointestinal/Abdominal: Positive for: Normal Exam, Soft Back: Positive for: Normal Inspection. Negative for: L CVA Tenderness, R CVA Tenderness Extremity: Negative for: Normal ROM Neurologic/Psych: Positive for: Alert, pharmaceutical detailer II-XII, Oriented - ECG O2 Sat by Pulse Oximetry: 100 Pulse Ox Interpretation: Normal - Progress ED Course And Treament: 1035: Stable. AAOx3. Pain free. Tolerated PO. Fu with dentist. Disposition - Clinical Impression Clinical Impression: Toothache - Patient ED Disposition Is Patient to be Admitted: No Counseled Patient/Family Regarding: Diagnosis, Need For Followup, Rx Given - Disposition Referrals: [facility] [Outside] - 08/01/17 Disposition: Routine/Home Disposition Time: 10:36 Condition: STABLE Additional Instructions: Return if not better in 3 days. See your dentist in 3 days without fail. Prescriptions: Amoxicillin/Clavulanate [Augmentin 875 MG-125 MG] 1 tab PO BID 7 Days tab Ibuprofen [Motrin] 600 mg PO TID 7 Days tab Instructions: Dental Pain (DC) Forms: [facility] (Sing[place]an), [facility] ED School/Work Excuse
[2017-07-30 11:08] VITALS: PULSE 88
== END 2017-07-30 11:09 | disposition home or self-care (01) ==
LOC: H.ER 09:03
DX: K08.89 Other specified disorders of teeth and supporting structures (principal)
CPT/HCPCS: 81025; 96372; 99283; J1885

== ENCOUNTER 2017-10-09 08:51 | Emergency (ER) | payer MEDICAID ==
[2017-10-09 08:55] VITALS: BMI 39.7
[2017-10-09 08:56] VITALS: BP 108/69; PULSE 78; RESP 17; TEMP 98.1; O2SAT 100
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
--- NOTE | 2017-10-09 09:50 | RAD ---
Date of service: 10/09/2017 PROCEDURE: Left Foot Radiographs. HISTORY: pain COMPARISON: Comparison made with radiographs of the left ankle dated 03/14/2013 FINDINGS: BONES: Normal. No fracture. JOINTS: Normal. SOFT TISSUES: Normal. OTHER FINDINGS: None. IMPRESSION: Normal left foot radiographs.
== END 2017-10-09 11:18 | disposition home or self-care (01) ==
LOC: H.ER 08:51
DX: S96.912A Strain of unspecified muscle and tendon at ankle and foot level, left foot, initial encounter (principal); W22.8XXA Striking against or struck by other objects, initial encounter; Y92.89 Other specified places as the place of occurrence of the external cause

== ENCOUNTER 2018-08-12 20:28 | Emergency (ER) | payer SELFPAY ==
[2018-08-12 20:28] VITALS: BMI 39.7
[2018-08-12 20:54] VITALS: BP 124/84; PULSE 80; RESP 18; TEMP 98.6; O2SAT 99
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
== END 2018-08-12 21:36 | disposition home or self-care (01) ==
LOC: H.ER 20:28
DX: S00.211A Abrasion of right eyelid and periocular area, initial encounter (principal); S50.819A Abrasion of unspecified forearm, initial encounter; W25.XXXA Contact with sharp glass, initial encounter; Y92.89 Other specified places as the place of occurrence of the external cause